=== PATIENT | male | born 1980 | race African-American/Black ===

== ENCOUNTER 2017-12-23 20:06 | Emergency (ER) | payer SELFPAY ==
[~2017-12-23 20:06] MED LIST: ERYT.5%O LEFT EYE; TRAM50 PO; Z.0.NO CURRENT MEDS
[2017-12-23 20:09] VITALS: BP 128/71; PULSE 94; RESP 16; TEMP 98.5; O2SAT 99
[2017-12-23] MEDS ORDERED: cefTRIAXone 250 MG VIAL IM ONE (21:00)
[2017-12-23] MEDS ORDERED: AZITHROMYCIN 250 MG TAB PO ONE (21:00)
[2017-12-23] MEDS ORDERED: metroNIDAZOLE 500 MG TAB PO ONE (21:00)
--- NOTE | 2017-12-23 21:10 | PD ---
HPI Chief Complaint: Complaint Time Seen by Provider: 20:46 Travel History International Travel<30 days: No Contact w/Intl Traveler<30days: No Traveled to known affect area: No History of Present Illness HPI 37-year-old male presents for evaluation of testicular pain. Symptoms started 5 days ago. Reports pain, swelling right testicle, throbbing, constant, worse with palpation. He has had some white urethral discharge as well. He reports that he is sexually active with 2 recent partners. One of his partners recently notified him that she was positive with Trichomonas. He has no other complaints at this time. [facility] Past Medical History Medical History: Denies Significant Hx Tetanus Vaccination: Never Vaccinated Influenza Vaccination: No Past Surgical History Surgical History: No Previous Surgery Social History Alcohol Use: No Tobacco Use: Yes (1/2 PPD) Substance Use: No Allergies-Medications (Allergen,Severity, Reaction): Coded Allergies: No Known Allergies (Verified , 04/09/13) Reported Meds & Prescriptions Reported Meds & Active Scripts Active Doxycycline Hyclate 100 Mg Cap 100 Mg PO BID Ultram (Tramadol HCl) 50 Mg Tab 50 Mg PO Q4HPRN FOR PAIN Ilotycin (Erythromycin) 3.5 Gm Oint 1 Dose LEFT EYE QID Reported No Current Meds (Miscellaneous Medication) Misc Review of Systems Except as stated in HPI: all other systems reviewed are Neg Physical Exam Narrative GENERAL: Well-developed well-nourished male in no acute distress SKIN: Warm and dry. HEAD: Atraumatic. Normocephalic. EYES: Pupils equal and round. No scleral icterus. No injection or drainage. ENT: No nasal bleeding or discharge. Mucous membranes pink and moist. NECK: Trachea midline. No JVD. CARDIOVASCULAR: Regular rate and rhythm. No murmur appreciated. RESPIRATORY: No accessory muscle use. Clear to auscultation. Breath sounds equal bilaterally. GASTROINTESTINAL: Abdomen soft, non-tender, nondistended. Hepatic and splenic margins not palpable. examination reveals significantly enlarged right testicle which is tender to palpation. There are no scrotal lesions, no erythema of the scrotum. There is no urethral discharge. MUSCULOSKELETAL: No obvious deformities. No clubbing. No cyanosis. No edema. NEUROLOGICAL: Awake and alert. No obvious cranial nerve deficits. Motor grossly within normal limits. Normal speech. PSYCHIATRIC: Appropriate mood and affect; insight and judgment normal. Data Data Last Documented VS Vital Signs Date Time Temp Pulse Resp B/P (MAP) Pulse Ox O2 Delivery O2 Flow Rate FiO2 12/24/17 00:30 78 16 122/64 (83) 97 12/23/17 20:09 98.5 Room Air Orders Orders Urinalysis - C+S If Indicated (12/23/17 20:53) Gc And Chlamydia Pcr (12/23/17 20:53) Us Testicles W Doppler (12/23/17 20:53) Azithromycin (Zithromax) (12/23/17 21:00) Ceftriaxone Inj (Rocephin Inj) (12/23/17 21:00) Metronidazole (Flagyl) (12/23/17 21:00) Urine Culture (12/23/17 21:15) Ed Discharge Order (12/23/17 23:51) Labs Laboratory Tests Test 12/23/17 21:15 Urine Color YELLOW Urine Turbidity HAZY Urine pH 6.0 Urine Specific [place] 1.023 Urine Protein 30 mg/dL Urine Glucose (UA) NEG mg/dL Urine Ketones TRACE mg/dL Urine Occult Blood MOD Urine Nitrite NEG Urine Bilirubin NEG Urine Urobilinogen LESS THAN 2.0 MG/DL Urine Leukocyte Esterase LARGE Urine RBC 4 /hpf Urine WBC /hpf Urine Squamous Epithelial Cells 1 /hpf Urine Transitional Epithelial Cells 1 /hpf Urine Bacteria FEW /hpf Urine Mucus FEW /lpf Microscopic Urinalysis Comment CULTURE INDICATED Chlamydia trachomatis DNA (PCR) NOT DETECTED Neisseria gonorrhoeae DNA (PCR) NOT DETECTED MDM Medical Decision Making Medical Screen Exam Complete: Yes Emergency Medical Condition: Yes Medical Record Reviewed: Yes Differential Diagnosis Epididymitis, orchitis, urethritis, Trichomonas exposure Narrative Course The patient was empirically given Rocephin, azithromycin, Flagyl. GC probe pending. Ultrasound ordered. Urinalysis reveals moderate blood, trace ketones , innumerable WBCs, likely secondary to urethritis. 2300: At the end of my shift the patient was signed out pending ultrasound results. Scripts Doxycycline Hyclate (Doxycycline Hyclate) 100 Mg Cap 100 MG PO BID for Infection, #28 CAP 0 Refills Prov: Nicolle Elias MD 12/23/17 Carlos Alberto Elliott Dec 23, 2017 21:10
[2017-12-23 22:10] LABS: BACTERIA, URINE FEW /hpf; BILIRUBIN, URINE NEG (NEG); BLOOD, URINE MOD (NEG); GLUCOSE,URINE NEG (NEG); KETONE, URINE TRACE mg/dL (NEG); MUCUS URINE FEW /lpf (OCC); NITRITE,URINE NEG (NEG); SQUAMOUS EPITHELIAL CELL URINE 1 /hpf (0-5); TRANSITIONAL EPI CELLS, URINE 1 /hpf; URINE COLOR YELLOW (YELLW/STRAW); URINE LEUKOCYTE ESTERASE LARGE (NEG)
--- NOTE | 2017-12-23 23:15 | PD ---
Data Data Last Documented VS Vital Signs Date Time Temp Pulse Resp B/P (MAP) Pulse Ox O2 Delivery O2 Flow Rate FiO2 12/23/17 22:30 12/23/17 20:09 98.5 94 16 99 Room Air Orders Orders Urinalysis - C+S If Indicated (12/23/17 20:53) Gc And Chlamydia Pcr (12/23/17 20:53) Us Testicles W Doppler (12/23/17 20:53) Azithromycin (Zithromax) (12/23/17 21:00) Ceftriaxone Inj (Rocephin Inj) (12/23/17 21:00) Metronidazole (Flagyl) (12/23/17 21:00) Urine Culture (12/23/17 21:15) Ed Discharge Order (12/23/17 23:51) Labs Laboratory Tests Test 12/23/17 21:15 Urine Color YELLOW Urine Turbidity HAZY Urine pH 6.0 Urine Specific [place] 1.023 Urine Protein 30 mg/dL Urine Glucose (UA) NEG mg/dL Urine Ketones TRACE mg/dL Urine Occult Blood MOD Urine Nitrite NEG Urine Bilirubin NEG Urine Urobilinogen LESS THAN 2.0 MG/DL Urine Leukocyte Esterase LARGE Urine RBC 4 /hpf Urine WBC /hpf Urine Squamous Epithelial Cells 1 /hpf Urine Transitional Epithelial Cells 1 /hpf Urine Bacteria FEW /hpf Urine Mucus FEW /lpf Microscopic Urinalysis Comment CULTURE INDICATED MDM Medical Record Reviewed: Yes Supervised Visit with ROSALIE: Yes Narrative Course During the course of the patients emergency department visit, the patients history, examination, and differential diagnosis were reviewed with the patient. The patient was placed on a monitoring engineer with oximetry and frequent blood pressure monitoring. The patient had IV access obtained and blood work sent for analysis. The patient's case was checked out to me by Carlos Alberto, the physician lead assistant manager at the conclusion of his shift. The patient is pending ultrasound of the testicles. The patient was initially provided Rocephin 250 IM, Zithromax 1 g by mouth, Flagyl 2 g by mouth due to an exposure to trichomoniasis. The patients laboratory studies were reviewed and remarkable for urinalysis shows large leukocyte esterase 4 rbc's innumerable WBCs. Radiology studies were reviewed and remarkable for ultrasound reveals no specific abnormality identified to explain the patient's pain, there is a small right hydrocele. The patient's symptoms are consistent with an epididymitis area the patient was also exposed to trichomoniasis. The patient reports having penile discharge with dysuria. The patient will be discharged home with a prescription for doxycycline. The patient is resting comfortably and feels better, is alert and in no distress. The patients results and examination findings were discussed with the patient. The repeat examination is unremarkable and benign. The history, exam, diagnostic testing, and current condition do not suggest any significant pathology to warrant further testing, continued ED treatment, admission, or surgical evaluation at this point. The vital signs have been stable. The patient does not have uncontrollable pain, intractable vomiting, or other significant symptoms. The patient's condition is stable and appropriate for discharge. The patient will pursue further outpatient evaluation with a primary care physician or other designated or consulting physician as indicated in the discharge instructions. The patient expressed understanding and was agreeable with this plan. Diagnosis Primary Impression: Epididymitis Additional Impression: Urethritis Referrals: [facility] Dept. Patient Instructions: Epididymitis (ED), General Instructions, Nonspecific Urethritis in Men (ED) Med/Other Pt SpecificInfo: Prescription(s) given Scripts Doxycycline Hyclate (Doxycycline Hyclate) 100 Mg Cap 100 MG PO BID for Infection, #28 CAP 0 Refills Prov: Nicolle Elias MD 12/23/17 Disposition: 01 DISCHARGE HOME Condition: Stable Nicolle Elias MD Dec 23, 2017 23:15
--- NOTE | 2017-12-23 23:43 | RADRPT ---
EXAM DATE/TIME: 12/23/2017 22:12 [place] COMPARISON: No previous studies available for comparison. INDICATIONS : Scrotal pain and swelling. MEDICAL HISTORY : Right scrotal pain and swelling. SURGICAL HISTORY : None. ENCOUNTER: Initial ACUITY: 4 - 6 days PAIN SCORE: 3/10 LOCATION: Bilateral scrotum. MEASUREMENTS: RIGHT TESTICLE: 4.1 x 3.4 x 2.6cm LEFT TESTICLE: 4.1 x 1.9 x 2.2cm FINDINGS: RIGHT TESTICLE: Homogeneous echotexture without intra or extratesticular mass. Blood flow is symmetric and within no rmal limits. No varicocele. There is a small hydrocele. Epididymis is within normal limits. LEFT TESTICLE: Homogeneous echotexture without intra or extratesticular mass. Blood flow is symmetric and within no rmal limits. No hydrocele or varicocele. Epididymis is within normal limits. SCROTUM: Within normal limits. CONCLUSION: 1. No specific abnormality is identified to explain the pain. 2. There is a small right hydrocele. Charles Zavala MD on December 23, 2017 at 23:40 Board Certified Radiologist. This report was verified electronically.
[2017-12-23] MEDS ORDERED: DOXY100C PO (23:50)
[2017-12-24 00:30] VITALS: BP 122/64
== END 2017-12-24 00:31 | disposition home or self-care (01) ==
LOC: NEPE 20:06
DX: N45.1 Epididymitis (principal); N34.2 Other urethritis; N43.3 Hydrocele, unspecified; F17.200 Nicotine dependence, unspecified, uncomplicated
CPT/HCPCS: 76870; 81001; 87086; 87491; 87591; 93975; 96372; 99284; J0696